=== PATIENT | female | born 1960 ===

== ENCOUNTER 2017-10-25 11:24 | Emergency (ER) | payer MEDICARE, OTHER ==
[~2017-10-25] VITALS: Ht 165.1 cm; Wt 79.5 kg
[2017-10-25 11:25] VITALS: TEMP 98.7
[2017-10-25] MEDS ORDERED: LASIX 20MG TABL20 MG PO (11:42)
[2017-10-25] MEDS ORDERED: PLAQUENIL 200M200 MG PO (11:42)
[2017-10-25] MEDS ORDERED: PREDNISONE10 MG PO (11:42)
[2017-10-25] MEDS ORDERED: CATAPRES 0.1MG0.1 MG PO (11:43)
[2017-10-25] MEDS ORDERED: CARDIZEM LA360 MG PO (11:44)
[2017-10-25] MEDS ORDERED: HYDRALAZINE HC100 MG PO (11:44)
[2017-10-25] MEDS ORDERED: NEURONTIN300 MG/CAP PO (11:44)
[2017-10-25] MEDS ORDERED: NORCO 325 MG-7.1 TAB PO (11:45)
[2017-10-25] MEDS ORDERED: RESTORIL30 MG PO (11:45)
[2017-10-25] MEDS ORDERED: SOMA 350MG350 MG/TAB PO (11:46)
[2017-10-25] MEDS ORDERED: PRIL40 PO (11:46)
[2017-10-25] MEDS ORDERED: FENTANYL37.5 MCG/H TD (11:47)
[2017-10-25 14:03] LABS: MEAN CELL VOLUME 90 fl (80.0-100.0); MEAN CORPUSCULAR HGB CONC 34 g/dl (33.0-37.0); MEAN PLATELET VOLUME 10.5 fl (7.4-10.4); PLATELET COUNT 241 K/mm3 (130-400); RED BLOOD COUNT 3.83 M/mm3 (4.10-5.30)
[2017-10-25 14:07] LABS: ADD PATHOLOGY DIFF REVIEW NO; HEMATOCRIT 34.3 % (37.0-47.0); HEMOGLOBIN 11.7 g/dl (12.5-16.0); MEAN CORPUSCULAR HEMOGLOBIN 31 pg (27.0-31.0)
[2017-10-25 14:08] LABS: ALANINE AMINOTRANSFERASE 76 U/L (9-52); ALKALINE PHOSPHATASE 86 U/L (50-136); ANION GAP 9 mmol/L (7-16); BILIRUBIN,TOTAL 0.8 mg/dL (0.0-1.0); BLOOD UREA NITROGEN 11 mg/dL (7-17); CARBON DIOXIDE 25 mmol/L (22-30); CHLORIDE 107 mmol/L (98-107); CREATININE, serum 0.67 mg/dL (0.52-1.25); GLUCOSE 86 mg/dL (74-106); MAGNESIUM 1.7 mg/dL (1.6-2.3); PHOSPHOROUS 4.4 mg/dL (2.5-4.5); POTASSIUM 4.3 mmol/L (3.4-5.0); SODIUM 140 mmol/L (137-145); TOTAL PROTEIN 7.9 gm/dL (6.4-8.2)
[2017-10-25 14:18] LABS: B-TYPE NATRIURETIC PEPTIDE 92 pg/mL (0-125)
[2017-10-25 14:25] LABS: TROPONIN-I < 0.012 ng/mL (0.000-0.034)
[2017-10-25 14:27] LABS: BASOPHIL 1 % (0-2); EOSINOPHIL 2 % (0-4); LYMPHOCYTE 46 % (20.0-51.0); NEUTROPHILS 45 % (42.0-75.2); TOTAL CELLS COUNTED 100
[2017-10-25 14:28] LABS: PLATELET ESTIMATE NORMAL (NORMAL)
[2017-10-25 15:25] VITALS: BP 117/75; PULSE 60
== END 2017-10-25 15:25 | disposition home or self-care (01) ==
LOC: COL.ER 11:24
PROVIDERS: Physician Assistant
DX: G89.29 Other chronic pain (principal); M79.605 Pain in left leg; M79.604 Pain in right leg; R07.9 Chest pain, unspecified; R11.0 Nausea; I13.0 Hypertensive heart and chronic kidney disease with heart failure and stage 1 through stage 4 chronic kidney disease, or unspecified chronic kidney disease; I50.9 Heart failure, unspecified; N18.9 Chronic kidney disease, unspecified; J44.9 Chronic obstructive pulmonary disease, unspecified; I25.2 Old myocardial infarction; B19.20 Unspecified viral hepatitis C without hepatic coma; M32.9 Systemic lupus erythematosus, unspecified; Z86.73 Personal history of transient ischemic attack (TIA), and cerebral infarction without residual deficits; Z85.038 Personal history of other malignant neoplasm of large intestine; Z95.0 Presence of cardiac pacemaker; Z76.0 Encounter for issue of repeat prescription
CPT/HCPCS: J2405; J3010; J7040

== ENCOUNTER 2017-10-28 16:29 | Emergency (ER) | payer MEDICARE, OTHER ==
[~2017-10-28] VITALS: Ht 165.1 cm; Wt 81.8 kg
[~2017-10-28 16:29] MED LIST: CARDIZEM LA360 MG PO; CATAPRES 0.1MG0.1 MG PO; FENTANYL37.5 MCG/H TD; HYDRALAZINE HC100 MG PO; LASIX 20MG TABL20 MG PO; NEURONTIN300 MG/CAP PO; NORCO 325 MG-7.1 TAB PO; PLAQUENIL 200M200 MG PO; PREDNISONE10 MG PO; PRIL40 PO; RESTORIL30 MG PO; SOMA 350MG350 MG/TAB PO
[2017-10-28 16:32] VITALS: TEMP 99.9
[2017-10-28 19:35] VITALS: BP 150/93; PULSE 63
== END 2017-10-28 19:35 | disposition home or self-care (01) ==
LOC: COL.ER 16:29
DX: M25.551 Pain in right hip (principal); M25.561 Pain in right knee; I10 Essential (primary) hypertension; J44.9 Chronic obstructive pulmonary disease, unspecified; Z95.0 Presence of cardiac pacemaker; Z86.73 Personal history of transient ischemic attack (TIA), and cerebral infarction without residual deficits; W18.2XXA Fall in (into) shower or empty bathtub, initial encounter; Y92.002 Bathroom of unspecified non-institutional (private) residence as the place of occurrence of the external cause